=== PATIENT | female | born 2000 | race Hispanic/Latino ===

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

== ENCOUNTER 2023-04-05 00:32 | Emergency (ER) | payer MEDICAID ==
[~2023-04-05] VITALS: Ht 152.4 cm; Wt 97.6 kg
[~2023-04-05 00:32] MED LIST: FERS325 PO; PREN-68 PO
[2023-04-05] MEDS ORDERED: LABETALOL 20MG VIAL IV ONE (01:00)
[2023-04-05 01:26] LABS: BASOPHILS # (AUTO) 0.02 K/uL (0.00-0.20); BASOPHILS % (AUTO) 0.2 % (0.0-5.0); EOSINOPHILS # (AUTO) 0.23 K/uL (0.00-0.70); EOSINOPHILS % (AUTO) 2.1 % (0.0-8.0); HEMATOCRIT 26.6 % (36-48); IMMATURE GRANULOCYTE ABSOLUTE 0.06 K/uL (0-1); LYMPHOCYTES # (AUTO) 2.4 K/uL (1.0-4.8); LYMPHOCYTES % (AUTO) 21.8 % (21.0-51.0); MEAN CORPUSCULAR HEMOGLOBIN 21.2 pg (27.0-33.0); MEAN CORPUSCULAR HGB CONC 29.3 g/dL (32.0-36.0); MEAN CORPUSCULAR VOLUME 72.3 fL (79-99); MONOCYTES # (AUTO) 0.6 K/uL (0.1-1.0); NEUTROPHILS # (AUTO) 7.7 K/uL (1.8-7.7); NEUTROPHILS % (AUTO) 70.4 % (40.0-77.0); NUCLEATED RED BLOOD CELLS 0.2 % (0.0-0.19); PLATELET COUNT (AUTO) 353 K/uL (130-400); RED BLOOD CELL COUNT(AUTO) 3.68 MIL/uL (4.00-5.50); RED CELL DISTRIBUTION WIDTH 20.7 % (11.0-15.5)
[2023-04-05 01:38] LABS: FIBRINOGEN 448 mg/dL (180-350); INR < 0.93 (0.85-1.15); PROTHROMBIN TIME 10.7 SEC (9.6-11.6)
[2023-04-05 01:40] LABS: PARTIAL THROMBOPLASTIN TIME 26.5 SEC (26.3-35.5)
[2023-04-05 01:46] LABS: CREATININE 0.7 mg/dL (0.5-1.5); POTASSIUM 3.7 mmol/L (3.5-5.1)
[2023-04-05 01:51] LABS: ALBUMIN 2.2 g/dL (3.5-5.0); BILIRUBIN,TOTAL 0.2 mg/dL (0.2-1.0); TOTAL PROTEIN, SERUM 5.9 g/dL (6.0-8.3); URIC ACID 6.4 mg/dL (2.6-7.2)
[2023-04-05 02:29] VITALS: PULSE 87
[2023-04-05 02:41] LABS: APPEARANCE,URINE CLEAR (CLEAR); BILIRUBIN,URINE NEGATIVE (NEGATIVE); COLOR,URINE LIGHT-YELLOW (YELLOW); GLUCOSE, URINE (UA) NEGATIVE (NEGATIVE); KETONES,URINE NEGATIVE (NEGATIVE); LEUKOCYTE ESTERASE ,URINE 25 Leu/uL (NEGATIVE); NITRATE,URINE NEGATIVE (NEGATIVE); OCCULT BLOOD,URINE LARGE (NEGATIVE); PROTEIN,URINE 50 mg/dL (NEGATIVE); UROBILINOGEN,URINE 0.2 mg/dL (0.2-1.0)
[2023-04-05 02:46] LABS: ADD UA MICROSCOPIC YES
[2023-04-05 02:49] LABS: AMPHET/METH SCREEN,URINE NEGATIVE (NEGATIVE); BARBITURATE SCREEN, URINE NEGATIVE (NEGATIVE); BENZODIAZEPINES SCREEN,URINE NEGATIVE (NEGATIVE); CANNABINOID SCREEN,URINE NEGATIVE (NEGATIVE); COCAINE SCREEN,URINE NEGATIVE (NEGATIVE); OPIATE SCREEN,URINE POSITIVE (NEGATIVE); PHENCYCLIDINE SCREEN,URINE NEGATIVE (NEGATIVE)
[2023-04-05 02:57] LABS: MUCUS,URINE RARE LPF (None Seen); RBC,URINE 26-50 /HPF (0-1)
[2023-04-05 03:34] VITALS: BP 149/66; PULSE 68; RESP 16; O2SAT 98
[2023-04-05] MEDS ORDERED: CEPH500B PO (04:22)
[2023-04-05] MEDS ORDERED: LABE100T7 PO (04:22)
[2023-04-05] MEDS ORDERED: CEPHALEXIN 500 MG CAPSULE PO ONE (04:30)
== END 2023-04-05 04:49 | disposition home or self-care (01) ==
LOC: EDH 00:32
DX: N39.0 Urinary tract infection, site not specified (principal); I10 Essential (primary) hypertension
CPT/HCPCS: 99283; 96374; 83615; 84550; 80053; 80305; 85025; 85384; 85610; 85730; 86850; 86900; 86901; 36415; 81001; J3490

== ENCOUNTER 2023-04-06 09:03 | Emergency (ER) | payer MEDICAID ==
[~2023-04-06] VITALS: Ht 167.6 cm; Wt 97.5 kg
[2023-04-06] VITALS (7 sets, daily range): BP systolic 124; BP diastolic 86; PULSE 100–135; RESP 18–30; TEMP 98.2; O2SAT 30–100
[~2023-04-06 09:03] MED LIST changes: +CEPH500B PO; +LABE100T7 PO
[2023-04-06 09:24] LABS: BASOPHILS # (AUTO) 0.03 K/uL (0.00-0.20); BASOPHILS % (AUTO) 0.2 % (0.0-5.0); EOSINOPHILS # (AUTO) 0.25 K/uL (0.00-0.70); EOSINOPHILS % (AUTO) 1.4 % (0.0-8.0); HEMATOCRIT 32.7 % (36-48); IMMATURE GRANULOCYTE ABSOLUTE 0.17 K/uL (0-1); LYMPHOCYTES # (AUTO) 2.2 K/uL (1.0-4.8); LYMPHOCYTES % (AUTO) 12.3 % (21.0-51.0); MEAN CORPUSCULAR HEMOGLOBIN 21.6 pg (27.0-33.0); MEAN CORPUSCULAR HGB CONC 29.7 g/dL (32.0-36.0); MEAN CORPUSCULAR VOLUME 72.7 fL (79-99); MONOCYTES # (AUTO) 0.8 K/uL (0.1-1.0); MONOCYTES % (AUTO) 4.4 % (3.0-13.0); NEUTROPHILS # (AUTO) 14.4 K/uL (1.8-7.7); NEUTROPHILS % (AUTO) 80.7 % (40.0-77.0); NUCLEATED RED BLOOD CELLS 0.3 % (0.0-0.19); PLATELET COUNT (AUTO) 400 K/uL (130-400); RED CELL DISTRIBUTION WIDTH 21.6 % (11.0-15.5); WHITE BLOOD COUNT (AUTO) 17.8 K/uL (4.8-10.8)
[2023-04-06] MEDS ORDERED: M.V.I. IV [ADULT] 10 ML, FOLIC ACID 1 MG, THIAMINE HCL 100 MG in 0.9%NACL 1000ML 1,000 ML IV STA (09:25)
[2023-04-06] MEDS ORDERED: CEFTRIAXONE 2GM VIAL IVPB ONE (09:30)
[2023-04-06] MEDS ORDERED: LORAZEPAM 2 MG/ML 1 ML VIAL IVP ONE ×2 (09:30→11:00)
[2023-04-06] MEDS ORDERED: 0.9%NACL 1000ML 2,000 ML IV ONE (09:37)
[2023-04-06 09:38] LABS: CARBON DIOXIDE 18 mmol/L (21-32); CHLORIDE 106 mmol/L (101-111); CREATININE 0.9 mg/dL (0.5-1.5); GLOMERULAR FILTR. RATE CALC 92 mL/min (>90); GLUCOSE,RANDOM 122 mg/dL (70-105); POTASSIUM 3.5 mmol/L (3.5-5.1); SODIUM SERUM 143 mmol/L (136-145); UREA NITROGEN, BLOOD 9 mg/dL (7-18)
[2023-04-06 09:46] LABS: APPEARANCE,URINE CLEAR (CLEAR); BILIRUBIN,URINE NEGATIVE (NEGATIVE); COLOR,URINE LIGHT-YELLOW (YELLOW); GLUCOSE, URINE (UA) NEGATIVE (NEGATIVE); KETONES,URINE 10 mg/dL (NEGATIVE); LEUKOCYTE ESTERASE ,URINE NEGATIVE Leu/uL (NEGATIVE); NITRATE,URINE NEGATIVE (NEGATIVE); OCCULT BLOOD,URINE MODERATE (NEGATIVE); PH,URINE 5.5 (5.0-8.0); PROTEIN,URINE 300 mg/dL (NEGATIVE); UROBILINOGEN,URINE 0.2 mg/dL (0.2-1.0)
[2023-04-06 09:48] LABS: ALANINE AMINOTRANSFERASE 35 U/L (12-78); ALBUMIN 2.2 g/dL (3.5-5.0); ASPARTATE AMINOTRANSFERASE 32 U/L (10-37); BILIRUBIN,TOTAL 0.2 mg/dL (0.2-1.0); CREATINE KINASE, TOTAL 142 U/L (21-232); MYOGLOBIN 155 ng/mL (10-92); TOTAL PROTEIN, SERUM 6.2 g/dL (6.0-8.3)
[2023-04-06 09:55] LABS: ALCOHOL, BLOOD < 3 mg/dL (0-10)
[2023-04-06] MEDS ORDERED: ACETAMINOPHEN 650 MG SUPPOSITORY RC ONE (10:00)
[2023-04-06] MEDS ORDERED: 0.9%NACL 1000ML 1,000 ML IV ONE ×2 (10:00)
[2023-04-06 10:01] LABS: ADD UA MICROSCOPIC YES
[2023-04-06 10:07] LABS: AMPHET/METH SCREEN,URINE NEGATIVE (NEGATIVE); BARBITURATE SCREEN, URINE NEGATIVE (NEGATIVE); BENZODIAZEPINES SCREEN,URINE NEGATIVE (NEGATIVE); CANNABINOID SCREEN,URINE NEGATIVE (NEGATIVE); COCAINE SCREEN,URINE NEGATIVE (NEGATIVE); OPIATE SCREEN,URINE NEGATIVE (NEGATIVE); PHENCYCLIDINE SCREEN,URINE NEGATIVE (NEGATIVE)
[2023-04-06 10:33] LABS: BACTERIA,URINE RARE /HPF (None Seen); SQUAMOUS EPITHELIAL CELL,UR RARE /HPF (0-2)
[2023-04-06] MEDS ORDERED: LEVETIRACETAM 500 MG/5 ML SD VIAL IV SCH (11:00)
[2023-04-06 11:21] LABS: INR 0.96 (0.85-1.15); PROTHROMBIN TIME 11.2 SEC (9.6-11.6)
[2023-04-06 11:23] LABS: PARTIAL THROMBOPLASTIN TIME 25.1 SEC (26.3-35.5)
[2023-04-06 11:55] LABS: ABG BASE EXCESS -8.4 mmol/L (-2.0-3.0); ABG HCO3 17.5 mmol/L (21.0-28.0); ABG OXYGEN SATURATION 99.3 % (95.0-99.0); ABG PCO2 38 mmHg (32-45); ABG PH 7.287 (7.350-7.450); CARBON MONOXIDE 0.3; DEVICE COMMENT RRNORMA; HHb 0.7; PO2, ARTERIAL BG 363.4 mmHg (83.0-108.0); VENT MODE, BG BIPAP 16-5 (ROOM AIR)
[2023-04-06] MEDS ORDERED: KETAMINE 50MG/ML SYRINGE 50 MG/ML DISP.SYRIN IV ONE (13:00)
[2023-04-06] MEDS ORDERED: ENOXAPARIN SODIUM 100 MG/1 ML SQ ONE (14:00)
[2023-04-06] MEDS ORDERED: MAGNESIUM 4GM PREMIX 100ML 100 ML IV PRN (14:30)
[2023-04-06 14:53] LABS: ABG BASE EXCESS -6.7 mmol/L (-2.0-3.0); ABG OXYGEN SATURATION 95.3 % (95.0-99.0); ABG PCO2 34 mmHg (32-45); ABG PH 7.341 (7.350-7.450); VENT MODE, BG BIPAP 16-6 (ROOM AIR)
[2023-04-06 15:55] LABS: ABG BASE EXCESS -8.1 mmol/L (-2.0-3.0); ABG HCO3 16.1 mmol/L (21.0-28.0); ABG OXYGEN SATURATION 98.5 % (95.0-99.0); ABG PCO2 30 mmHg (32-45); ABG PH 7.348 (7.350-7.450); DEVICE COMMENT RRNORMA; PO2, ARTERIAL BG 129.7 mmHg (83.0-108.0); VENT MODE, BG BIPAP 16-6 (ROOM AIR)
[2023-04-06] MEDS ORDERED: PROPOFOL 1000 MG/100 ML 100 ML IV SCH (16:30)
[2023-04-06 17:13] LABS: SARS-CoV-2, RNA, NAAT NEGATIVE SARS CoV-2 (NEGATIVE)
[2023-04-06] MEDS ORDERED: MIDAZOLAM 50MG-0.9% NS 50ML 1 ML in MIDAZOLAM 50MG-0.9% NS 50ML 50 ML IV SCH (23:00)
[2023-04-07] MEDS ORDERED: M.V.I. IV [ADULT] 10 ML, FOLIC ACID 1 MG, THIAMINE HCL 100 MG in 0.9%NACL 1000ML 1,000 ML IV SCH (09:00)
== END 2023-04-06 22:39 | disposition short-term general hospital (02) ==
LOC: EDH 09:03
DX: R56.9 Unspecified convulsions (principal); A41.9 Sepsis, unspecified organism; Z20.822 Contact with and (suspected) exposure to COVID-19; Z79.899 Other long term (current) drug therapy
CPT/HCPCS: 36556; 82947; 99285; 82435; 82550; 83874; 84484 ×2; 84132; 84295; 80053; 82803 ×3; 80305; 85025; 85378; 85610; 85730; 85018; 87040 ×2; 87088; 81001; 36415; 87635; 71045 ×3; 70450; 96365; 96366; 96372; 96375; 96367; 96368; 96376; 93005; 31500; 36600 ×3; 94660; 83605 ×3; C9803; J1953; J7030 ×2; J0696; J3490 ×4; J3411; J2060 ×2; J1650; J3475; A9900; 94002; J2704

== ENCOUNTER → 2023-06-13 | Outpatient (CLI) | payer MEDICAID ==
[~2023-06-13] MED LIST changes: +IOHEXOL 350 MG/ML 100ML INFUS..BTL IV ONE; +METOPROLOL TARTRATE 1 MG/ML 5ML VIAL IV ONE
== END | disposition home or self-care (01) ==
LOC: RAH 08:53
PROVIDERS: ATTEND Internal Medicine
DX: I42.9 Cardiomyopathy, unspecified (principal)
CPT/HCPCS: 75574; J3490; Q9967